=== PATIENT | female | born 1990 | race Caucasian/White ===

== ENCOUNTER 2016-12-12 13:14 | Emergency (ER) | payer OTHER ==
[~2016-12-12 13:14] MED LIST: BACTRIM DS TABL1 TA1 PO; BENADRYL25 MG PO; LOTRISONE CREAM45 GM TOP; VISTARIL50 MG PO; ZYRTEC PO; [UNRECOGNIZED DRUG - OTHER]
[2016-12-12] MEDS ORDERED: ASPIRIN81 MG PO (13:21)
[2016-12-12] MEDS ORDERED: FLINTSTONES1 EACH PO (13:22)
== END 2016-12-12 14:59 | disposition home or self-care (01) ==
LOC: SED 13:14
DX: O9A.212 Injury, poisoning and certain other consequences of external causes complicating pregnancy, second trimester (principal); S61.217A Laceration without foreign body of left little finger without damage to nail, initial encounter; I10 Essential (primary) hypertension; Z79.82 Long term (current) use of aspirin; Z3A.15 15 weeks gestation of pregnancy; W26.0XXA Contact with knife, initial encounter; Y92.69 Other specified industrial and construction area as the place of occurrence of the external cause; Y99.0 Civilian activity done for income or pay
CPT/HCPCS: 99283